=== PATIENT | female | born 1985 | race Caucasian/White ===

== ENCOUNTER 2017-11-17 08:54 | Inpatient (IN) | payer MEDICAID ==
[2017-11-17] MEDS ORDERED: LACTATED RINGER'S 500 ML IV (10:56)
[2017-11-17] MEDS ORDERED: OXYTOCIN 30 UNITS/LR 500 ML IV ×2 (11:00)
[2017-11-17] MEDS ORDERED: MISOPROSTOL 200 MCG TAB PR (11:00)
[2017-11-17] MEDS ORDERED: CARBOPROST 250 MCG INJ IM (11:00)
[2017-11-17] MEDS ORDERED: BUTORPHANOL 2 MG INJ IV ×2 (11:00)
[2017-11-17] MEDS ORDERED: METHYLERGONOVINE 0.2 MG INJ IM (11:00)
[2017-11-17 12:02] LABS: ADD MAN DIFF? NO
[2017-11-17 12:11] LABS: WHITE BLOOD COUNT 10.1 10^3/ul (4.8-10.8)
[2017-11-17 12:11] LABS: BASOPHILS % 0.2 % (0.0-2.0); EOSINOPHILS % 0.3 % (0.0-7.0); HEMATOCRIT 40.2 % (37.0-47.0); HEMOGLOBIN 13.8 g/dl (12.0-16.0); LYMPHOCYTES # 1.4 10^3/ul (0.8-2.9); LYMPHOCYTES % 14.3 % (15.0-51.0); MEAN CORPUSCULAR HEMOGLOBIN 33.3 pg (29.0-33.0); MEAN CORPUSCULAR HGB CONC 34.3 g/dl (32.0-37.0); MEAN CORPUSCULAR VOLUME 96.9 fl (82.0-101.0); MEAN PLATELET VOLUME 11.3 fl (7.4-10.4); MONOCYTE # 0.5 10^3/ul (0.3-0.9); MONOCYTES % 5.3 % (0.0-11.0); NEUTROPHILS % 79.2 % (39.0-77.0); PLATELET COUNT 225 10^3/UL (140-415); RED BLOOD COUNT 4.15 10^6/ul (4.20-5.40); RED CELL DISTRIBUTION WIDTH 12.7 % (11.5-14.5)
[2017-11-17 12:37] LABS: INR 0.83; PROTIME 11.5 Sec (11.9-14.9); PT RATIO 0.9
[2017-11-17 12:38] LABS: PARTIAL THROMBOPLASTIN TIME 29.3 Sec (25.0-35.0)
[2017-11-17] MEDS: LACTATED RINGER'S 1,000 ML IV (13:28)
[2017-11-17] MEDS: LIDOCAINE 1% (MPF) 30 ML INJ INJ (14:06)
[2017-11-17] MEDS: OXYTOCIN 30 UNITS/LR 500 ML IV ×3 (14:09→18:04)
[2017-11-17] MEDS ORDERED: ACETAMINOPHEN 325 MG TAB PO (17:00)
[2017-11-17] MEDS ORDERED: DIBUCAINE 1% 30 GM OINT PR (17:00)
[2017-11-17] MEDS ORDERED: ONDANSETRON 4 MG INJ IV (17:00)
[2017-11-17] MEDS ORDERED: OXYCODONE/ASPIRIN (4.88/325) TAB PO ×2 (17:00)
[2017-11-17] MEDS ORDERED: HYDROCODONE/APAP (5/325) TAB PO ×2 (17:00)
[2017-11-17] MEDS: IBUPROFEN 600 MG TAB PO (18:00)
[2017-11-17] MEDS: BENZOCAINE 20% 56 ML SPRAY TOP (18:01)
[2017-11-17] MEDS: WITCH HAZEL/GLYCERIN PAD PR (18:01)
[2017-11-17] MEDS: LANOLIN 7 GM TUBE TOP (18:02)
[2017-11-17] MEDS: SENNA/DOCUSATE NA (8.6MG/50MG) TAB PO (21:29)
[2017-11-17 22:28] LABS: RAPID PLASMA REAGIN NONREACTIVE (NR)
[2017-11-18] MEDS: IBUPROFEN 600 MG TAB PO ×4 (00:02→17:24)
[2017-11-18] MEDS: SENNA/DOCUSATE NA (8.6MG/50MG) TAB PO ×2 (00:11→08:53)
[2017-11-18 09:47] LABS: ADD MAN DIFF? NO
[2017-11-18 09:57] LABS: WHITE BLOOD COUNT 11.3 10^3/ul (4.8-10.8)
[2017-11-18 09:57] LABS: BASOPHILS % 0.2 % (0.0-2.0); EOSINOPHILS % 0.4 % (0.0-7.0); HEMATOCRIT 35.8 % (37.0-47.0); HEMOGLOBIN 12.4 g/dl (12.0-16.0); LYMPHOCYTES # 1.8 10^3/ul (0.8-2.9); LYMPHOCYTES % 15.8 % (15.0-51.0); MEAN CORPUSCULAR HEMOGLOBIN 33.4 pg (29.0-33.0); MEAN CORPUSCULAR HGB CONC 34.6 g/dl (32.0-37.0); MEAN CORPUSCULAR VOLUME 96.5 fl (82.0-101.0); MEAN PLATELET VOLUME 11.5 fl (7.4-10.4); MONOCYTE # 0.5 10^3/ul (0.3-0.9); MONOCYTES % 4.6 % (0.0-11.0); NEUTROPHIL # 8.9 10^3/ul (1.6-7.5); NEUTROPHILS % 78.4 % (39.0-77.0); PLATELET COUNT 206 10^3/UL (140-415); RED BLOOD COUNT 3.71 10^6/ul (4.20-5.40)
[2017-11-18] MEDS: INFLUENZA VIRUS VACCINE 0.5 ML SYG IM* (16:04)
[2017-11-19] MEDS: IBUPROFEN 600 MG TAB PO ×3 (00:11→11:39)
[2017-11-19] MEDS: SENNA/DOCUSATE NA (8.6MG/50MG) TAB PO (09:00)
[2017-11-19] MEDS: MEASLES,MUMPS,RUBELLA VACCINE INJ SC* (09:00)
== END 2017-11-19 15:15 | disposition home or self-care (01) | DRG 775 ==
LOC: OBT 08:54 → L-D 08:54 → OBT 10:08 → L-D 10:00 → PP1 15:51
PROVIDERS: Obstetrics & Gynecology
PROC: 10E0XZZ Delivery of Products of Conception, External Approach (ICD-10-PCS; principal; 2017-11-17)
PROC: 0HQ9XZZ Repair Perineum Skin, External Approach (ICD-10-PCS; 2017-11-17)
DX: O70.0 First degree perineal laceration during delivery (principal); Z37.0 Single live birth; Z3A.38 38 weeks gestation of pregnancy
CPT/HCPCS: 76818; 85025; 85610; 85730; 86592; 86900; 86901; 90686